=== PATIENT | male | born 1975 | race Caucasian/White ===

== ENCOUNTER 2019-04-15 11:39 | Emergency (ER) | payer OTHER ==
[~2019-04-15] VITALS: Ht 185.4 cm; Wt 97.5 kg
[2019-04-15] MEDS ORDERED: AMIT10 PO (12:00)
[2019-04-15] MEDS ORDERED: CYCL10 PO (12:00)
[2019-04-15] MEDS ORDERED: Prilosec Otc20 MG PO (12:00)
[2019-04-15] MEDS ORDERED: KETO10 PO (12:40)
[2019-04-15] MEDS ORDERED: Cyclobenzaprine5 MG PO (12:40)
== END 2019-04-15 12:51 | disposition home or self-care (01) ==
LOC: EDBD 11:39 → ER 11:39
DX: S39.012A Strain of muscle, fascia and tendon of lower back, initial encounter (principal); W01.0XXA Fall on same level from slipping, tripping and stumbling without subsequent striking against object, initial encounter; Z88.0 Allergy status to penicillin; Z79.899 Other long term (current) drug therapy; F17.210 Nicotine dependence, cigarettes, uncomplicated
CPT/HCPCS: 72100; 99283-25; A9270-GY

== ENCOUNTER 2020-04-06 19:03 | Emergency (ER) | payer OTHER ==
[~2020-04-06] VITALS: Ht 177.8 cm; Wt 74.8 kg
[~2020-04-06 19:03] MED LIST: AMIT10 PO; CYCL10 PO; Cyclobenzaprine5 MG PO; KETO10 PO; Prilosec Otc20 MG PO
== END 2020-04-06 19:42 | disposition left against medical advice (07) ==
LOC: ER 19:03
DX: M25.552 Pain in left hip (principal); F17.210 Nicotine dependence, cigarettes, uncomplicated; Z88.0 Allergy status to penicillin
CPT/HCPCS: 36415; 99285

== ENCOUNTER 2020-06-23 14:20 | Emergency (ER) | payer OTHER ==
[~2020-06-23] VITALS: Ht 185.4 cm; Wt 95.2 kg
[2020-06-23] MEDS ORDERED: IBUP800 PO (16:04)
[2020-06-23] MEDS ORDERED: CRUTCH2 XX (16:06)
[2020-06-23] MEDS ORDERED: Norco 5-325 Ta1 EACH PO (16:06)
== END 2020-06-23 16:25 | disposition home or self-care (01) ==
LOC: ER 14:20
DX: S89.91XA Unspecified injury of right lower leg, initial encounter (principal); M54.5 Low back pain; F17.210 Nicotine dependence, cigarettes, uncomplicated; W10.9XXA Fall (on) (from) unspecified stairs and steps, initial encounter; X50.1XXA Overexertion from prolonged static or awkward postures, initial encounter
CPT/HCPCS: 73502; 73564; 99283-25

== ENCOUNTER 2025-06-05 22:58 | Emergency (ER) | payer OTHER ==
[~2025-06-05] VITALS: Ht 185.4 cm; Wt 79.4 kg
[~2025-06-05 22:58] MED LIST changes: +CRUTCH2 XX; +IBUP800 PO; +Norco 5-325 Ta1 EACH PO
[2025-06-05 23:01] VITALS: BP 171/112
[2025-06-05] MEDS ORDERED: Methyl Salicylate/Menth/Camph 57 GM TUBE TOP ONE (23:10)
[2025-06-05] MEDS ORDERED: Ketorolac Tromethamine 30mg Vial IV ONE (23:10)
[2025-06-05 23:26] LABS: BASOPHILS ABSOLUTE AUTO 0.08 K/mm3 (0.00-0.23); BASOPHILS PERCENT AUTO 1 % (0-2); EOSINOPHILS ABSOLUTE AUTO 0.18 K/mm3 (0.00-0.68); EOSINOPHILS PERCENT AUTO 2 % (0-6); Hematocrit 44.5 % (37.0-53.0); Hemoglobin 15.8 g/dL (13.5-17.5); IMMATURE GRAN ABSOLUTE AUTO 0.04 K/mm3 (0.00-0.10); IMMATURE GRAN PERCENT AUTO 1 % (0-1); LYMPHOCYTES ABSOLUTE AUTO 4.22 K/mm3 (0.84-5.20); LYMPHOCYTES PERCENT AUTO 55 % (21-46); MONOCYTES ABSOLUTE AUTO 0.45 K/mm3 (0.16-1.47); MONOCYTES PERCENT AUTO 6 % (4-13); Mean Corpuscular HGB Conc 35.5 g/dL (31.5-36.5); Mean Corpuscular Volume 93 fL (80-100); NEUTROPHILS ABSOLUTE AUTO 2.74 K/mm3 (1.96-9.15); NEUTROPHILS PERCENT AUTO 36 % (41-73); NRBC ABSOLUTE 0.00 K/mm3 (0.00-0.02); NRBC Auto 0.0 /100 WBC (0.0-0.2); Platelet Count 290 K/mm3 (150-400); RDW Coefficient Variation 12.1 % (11.7-14.2); RDW Standard Deviation 41.7 fL (35.1-46.3)
[2025-06-05 23:47] LABS: Magnesium, Blood 2.2 mg/dL (1.6-2.4)
[2025-06-05 23:48] LABS: Alanine Aminotransfer (ALT/SGP 61.0 U/L (12-78); Albumin, Blood 3.8 g/dL (3.4-5.0); Albumin/Globulin Ratio 1.0 (0.8-1.8); Anion Gap 10.0 mmol/L (3-11); Aspartate Aminotrans (AST/SGOT 50.0 U/L (12-37); Bilirubin, Total 0.2 mg/dL (0.1-1.0); Blood Urea Nitrogen 11.0 mg/dL (8-24); CO2, Blood 21.0 mmol/L (21-32); Calcium, Blood 8.5 mg/dL (8.5-10.1); Chloride, Blood 113.0 mmol/L (98-108); Creatinine, Blood 0.95 mg/dL (0.60-1.20); Globulin, Blood 3.8 g/dL (2.2-4.0); Glucose, Blood 116.0 mg/dL (70-99); Potassium, Blood 3.8 mmol/L (3.5-5.5); Sodium, Blood 140.0 mmol/L (136-145); Total Protein, Blood 7.6 g/dL (6.4-8.2)
== END 2025-06-06 00:38 | disposition left against medical advice (07) ==
LOC: ER 22:58
PROVIDERS: Student in an Organized Health Care Education/Training Program
DX: M54.10 Radiculopathy, site unspecified (principal); M62.830 Muscle spasm of back; F17.210 Nicotine dependence, cigarettes, uncomplicated; Z79.899 Other long term (current) drug therapy; Z88.0 Allergy status to penicillin
CPT/HCPCS: 73030; 80053; 83735; 85025; 96374; 99283-25; A9270; J1885